=== PATIENT | male | born 2000 | race African-American/Black ===

== ENCOUNTER 2019-03-13 15:48 | Emergency (ER) | payer SELFPAY ==
[~2019-03-13] VITALS: Ht 170.2 cm; Wt 77.1 kg
[2019-03-13 16:30] VITALS: BP 125/70
--- NOTE | 2019-03-13 16:31 | NUR ---
ED Nurse Note: Pt smashed his L 4th finger accidentally on Tuesday03/11/19, now still experiencing pain. Pain 5/10 hallie. No swelling noted. AOx4, VSS. Will cont to monitor.
--- NOTE | 2019-03-13 16:51 | Diagnostic Imaging Report ---
Indication: Left hand pain Technique: 3 views left hand Comparison: none Findings: No acute fractures. No dislocations. The joint spaces are preserved. No radiopaque foreign body. Impression: Negative
--- NOTE | 2019-03-13 16:53 | Emergency Room Report ---
History of Present Illness General Chief Complaint: Upper Extremity Injury Source: Patient Present Illness HPI 18-year-old male presents to the emergency department complaining of 7 out of 10 severity pain to the left ring finger x2 days. Patient reports that his finger was smashed and he states that he has pain to the proximal aspect of the left ring finger. Patient denies open wounds, bleeding, or bruising. He reports that he is right hand dominant. Denies numbness tingling or loss of sensation or gross motor movements of the extremities, incontinence of bowel or bladder. Denies CP, Palpitations, LOC, AMS, dizziness, Changes in Vision, weakness or a sudden severe headache. Denies any relieving factors at this time reports pain is aggravated with bending the left ring finger/ making a fist. Allergies: Coded Allergies: No Known Allergies (Unverified , 03/13/19) Patient History Past Medical History: see triage record Past Surgical History: none Pertinent Family History: none Reviewed Nursing Documentation: PMH: Agreed; PSxH: Agreed Nursing Documentation-PMH Past Medical History: No History, Except For History Of Psychiatric Problem: Yes - Anxiety Review of Systems All Other Systems: negative except mentioned in HPI Physical Exam Vital Signs Date Time Temp Pulse Resp B/P (MAP) Pulse Ox O2 Delivery O2 Flow Rate FiO2 03/13/19 15:59 98.1 75 20 129/69 (89) 99 Room Air Sp02 EP Interpretation: reviewed, normal General Appearance: no apparent distress, alert, GCS 15, non-toxic Head: normocephalic, atraumatic Eyes: bilateral eye normal inspection, bilateral eye PERRL ENT: hearing grossly normal, normal voice Neck: full range of motion Respiratory: chest non-tender, lungs clear, normal breath sounds, speaking full sentences Cardiovascular #1: regular rate, rhythm, normal capillary refill Musculoskeletal: back normal, gait/station normal, normal range of motion, tender - TTP to the PIP joint of the left ring finger. No obvious deformities, bruises, swelling or open wounds. Neurologic: alert, oriented x3, responsive, motor strength/tone normal, sensory intact, speech normal, grossly normal Psychiatric: judgement/insight normal Medical Decision Making PA Attestation Dr. Watson is my supervising Physician whom patient management has been discussed with. Diagnostic Impression: Primary Impression: Crushing injury of finger of left hand ER Course 18-year-old male presents to the emergency department complaining of 7 out of 10 severity pain to the left ring finger x2 days. Patient reports that his finger was smashed and he states that he has pain to the proximal aspect of the left ring finger. Patient denies open wounds, bleeding, or bruising. He reports that he is right hand dominant. Denies numbness tingling or loss of sensation or gross motor movements of the extremities, incontinence of bowel or bladder. Denies CP, Palpitations, LOC, AMS, dizziness, Changes in Vision, weakness or a sudden severe headache. Denies any relieving factors at this time reports pain is aggravated with bending the left ring finger/ making a fist. Ddx considered but are not limited to Fracture, dislocation, contusion, Sprain/ Strain/Spasm. Vital signs: are WNL, pt. is afebrile H&PE are most consistent with musculoskeletal injury will perform imaging to r/ o fractures/dislocations. ORDERS: - X-ray left hand 3 views - negative for fx, Dislocation, or significant soft tissue injury, per preliminary read in ED, and signed by KIMBER Noel, my supervising physician has reviewed, and agrees with my interpretation. ED INTERVENTIONS: -- Finger Splint applied to the left 4th digit by chemistry technical officer. Pt. remains neurovascularly intact. DISCHARGE: At this time pt. is stable for d/c to home. Will provide printed patient care instructions, and any necessary prescriptions. Care plan and follow up instructions have been discussed with the patient prior to discharge. Other X-Ray Diagnostic Results Other X-Ray Diagnostic Results : X-Ray ordered: Left hand # of Views/Limited Vs Complete: 3 View Indication: Pain EP Interpretation: Yes KIMBER Xray: Interpretation reviewed, by supervising MD, and agrees with findings. Interpretation: no dislocation, no soft tissue swelling, no fractures Impression: No acute disease Electronically Signed by: Leisa Noel PA-C Last Vital Signs Date Time Temp Pulse Resp B/P (MAP) Pulse Ox O2 Delivery O2 Flow Rate FiO2 03/13/19 16:30 98.1 87 21 125/70 99 Room Air Disposition: HOME, SELF-CARE Condition: Stable Scripts Ibuprofen* (MOTRIN*) 600 Mg Tablet 600 MG ORAL THREE TIMES A DAY, #30 TAB 0 Refills Prov: Leisa Noel 03/13/19 Patient Instructions: Crush Injury, Fingers or Toes, [id number] Additional Instructions: Take medications as directed. Follow up with a Primary Care Provider in 3-5 days, even if your symptoms have resolved. --Please review list of primary care clinics, if you do not already have a primary care provider Return sooner to ED if new symptoms occur, or current symptoms become worse. - Please note that this Emergency Department Report was dictated using uromoviecoil builder technology software, occasionally this can lead to erroneous entry secondary to interpretation by the dictation equipment. Leisa Noel Mar 13, 2019 16:53
[2019-03-13] MEDS ORDERED: IBUPROFEN600 MG ORAL (16:54)
[2019-03-13 16:59] VITALS: BP 125/70
--- NOTE | 2019-03-13 16:59 | NUR ---
ER DISCHARGE NOTE: Patient is cleared to be discharged per ERMD, pt is aox4, on room air, with stable vital signs. pt was given dc and prescription instructions, pt was able to verbalize understanding, pt id band removed. pt is able to ambulate with steady gait. pt took all belongings.
== END 2019-03-13 16:59 | disposition home or self-care (01) ==
LOC: EMR 16:17
DX: S67.195A Crushing injury of left ring finger, initial encounter (principal); W23.0XXA Caught, crushed, jammed, or pinched between moving objects, initial encounter; Y92.9 Unspecified place or not applicable; F41.9 Anxiety disorder, unspecified
CPT/HCPCS: 29130; 99283